=== PATIENT | male | born 1930 | race Caucasian/White ===

== ENCOUNTER 2017-03-15 12:55 | Inpatient (IN) | payer MEDICARE, OTHER ==
[~2017-03-15 12:55] MED LIST: Iopamidol 370 76% 100 ML VIAL ONE; Iopamidol 370 76% 50 ML VIAL FS ONE
[2017-03-15] MEDS ORDERED: Ondansetron HCl/PF 4 MG/2 ML Vial ONE (13:04)
[2017-03-15 13:14] LABS: #Eosinphils 0.2 thou/uL (0.0-0.7); #Lymphocytes 1.9 thou/uL (1.20-3.40); #Monocytes 0.7 thou/uL (0.11-0.59); %Basophils 0.3 % (0.0-1.0); %Eosinophils 2.4 % (0.0-10.0); %Lymphocytes 24.3 % (21.0-51.0); %Monocytes 9.4 % (0.0-10.0); %Neutrophils 63.5 % (42.0-75.0); Hemoglobin 14.9 g/dL (14.0-18.0); Mean Corpuscular HGB CONC 33.5 g/dL (32.0-36.0); Mean Corpuscular Hemoglobin 31.3 pg (27.0-31.0); Mean Corpuscular Volume 93.5 fl (80.0-94.0); Mean Platelet Volume 8.4 fL (7.4-10.4); Platelet Count 168 thou/uL (130-400); RBC Distribution Width 12.9 % (11.5-14.5); Red Blood Cell (RBC) Count 4.76 mill/uL (4.70-6.10); White Blood Cell (WBC) Count 7.9 thou/uL (4.8-10.8)
[2017-03-15 13:25] LABS: INR-International Normal Ratio 1.2; Prothrombin Time 15.2 SEC (12.0-14.7)
[2017-03-15 13:31] LABS: ALT (SGPT) 26 U/L (8-55); AST (SGOT) 32 U/L (5-34); Alkaline Phosphatase 106 U/L (40-150); Anion Gap 15 mmol/L (10-20); BUN (Urea Nitrogen) 13 mg/dL (8.4-25.7); Bilirubin, Total 0.9 mg/dL (0.2-1.2); CK (CPK) 71 U/L (30-200); Calc. Creatinine Clearance 0 mL/min (70-130); Calcium 8.9 mg/dL (7.8-10.44); Carbon Dioxide 22 mmol/L (23-31); Chloride 109 mmol/L (98-107); Estimated GFR-MDRD 81; Globulin 2.5 g/dL (2.4-3.5); Glucose 171 mg/dL (83-110); Lipase 188 U/L (8-78); Potassium 3.5 mmol/L (3.5-5.1); Protein, Total 6.5 g/dL (5.8-8.1); Sodium 142 mmol/L (136-145)
[2017-03-15 13:31] LABS: PTT 136.4 SEC (22.9-36.1)
[2017-03-15 13:34] LABS: CKMB 3.1 ng/mL (0-6.6); Troponin I 0.087 ng/mL (< 0.028)
--- NOTE | 2017-03-15 14:11 | RAD ---
CHEST 1 VIEW: Date: 03/15/17 HISTORY: Emergency exam. COMPARISON: Chest 1 view dated 03/30/11. FINDINGS: Defibrillator pad projects over the right upper hemithorax. Cardiac silhouette and mediastinal contou rs are similar. No focal air space consolidation, pneumothorax, or effusion. No acute osseous abnorma lity. IMPRESSION: No acute intrathoracic abnormality. POS: [facility]
[2017-03-15 15:12] VITALS: BMI 26.5
[2017-03-15] MEDS ORDERED: cloNIDine 0.1 MG TAB PO PRN (15:32)
[2017-03-15] MEDS ORDERED: Aggrastat 12.5 MG/250 ML 12.5 MG in Premix Bag 1 BAG IVPB SCH (15:32)
[2017-03-15] MEDS ORDERED: Zolpidem Tartrate 5 MG TAB PO PRN (15:32)
[2017-03-15] MEDS ORDERED: Nitroglycerin 50 MG/250 ML BOT 250 ML IVPB SCH (15:45)
[2017-03-15] MEDS ORDERED: TICAGRELOR 90 MG TABLET PO SCH (15:45)
[2017-03-15] MEDS ORDERED: HYDROcodone/Acetaminophen 10/325 mg Tablet PO PRN (15:55)
[2017-03-15] MEDS ORDERED: Morphine 4 MG/ML Carpuject SLOW IVP SCH (16:00)
[2017-03-15] MEDS: Nitroglycerin 2% Ointment 1 INCH/1 GM Packet TOP SCH (16:07)
--- NOTE | 2017-03-15 17:10 | RAD ---
CHEST 1 VIEW: Date: 03/15/17 HISTORY: Status post CPR. COMPARISON: 03/15/17. FINDINGS: Portable supine chest demonstrates magnification of the cardiac silhouette due to portable technique. Pulmonary vessels prominent, likely due to position and recent CPR. No consolidation or mass. No pne umothorax on this supine projection. No osseous abnormalities. IMPRESSION: Cardiomegaly and pulmonary vascular prominence as detailed above. POS: [facility]
--- NOTE | 2017-03-15 17:28 | HP ---
INDICATION FOR ADMISSION: This is an 86-year-old gentleman suffering an acute non-ST segment elevati on myocardial infarction, but with some slight ST elevation in I and aVL. HISTORY OF PRESENT ILLNESS: He is an 86-year-old gentleman, who starting experiencing some chest jamshid n around 12:00 today. EMS was called and when they arrived, he was given, I believe metoprolol, aspi rin and nitroglycerin. He then went into ventricular fibrillation and required cardioversion. He th en was transferred to our facility for further evaluation and treatment. On arrival here, a repeat E KG shows ST segment depressions in II, III and aVF with slight elevation in I and aVL, but the patien t says the pain is somewhat better now, but still continued to have some chest discomfort and it is u ncertain whether or not this is pain from the chest wall from the cardioversion and CPR, continued ch est pain. On palpation, he certainly is tender, but difficult to determine with the ST segment eleva tion and the acute ventricular fibrillation after chest pain. He was advised to undergo emergent car diac catheterization, was taken to the cardiac labor relations teacher for the procedure. I have explained the proc edure and the risks to him to include bleeding, infection, possibility of myocardial infarction, CVA, renal insufficiency, allergic contrast reaction and even the possibility of and will plan for emergent cardiac catheterization. PAST MEDICAL AND SURGICAL HISTORY: Significant for atrial fibrillation, hypertension, appendectomy, prostatectomy, hemorrhoidectomy, vasectomy, history of prostate cancer, osteoarthritis and urinary in continence. He has had cataract surgery and hernia repair. SOCIAL HISTORY: We will discuss this later, but it is uncertain about his alcohol or tobacco use. FAMILY HISTORY: Noncontributory at this time. ALLERGIES: None. REVIEW OF SYSTEMS: Twelve-point review of systems unremarkable except what was noted in the history of present illness with the chest pain and urinary incontinence. His medications included hydrochlor othiazide, Protonix and Toprol-XL 25 mg a day at home. PHYSICAL EXAMINATION: GENERAL: Reveals an elderly gentleman who is in no acute distress at this time, but appears to be so mewhat uncomfortable. VITAL SIGNS: Blood pressure is 130 systolically. In the cardiac labor relations teacher, the blood pressure is 167 /93. HEENT: Shows head to be normocephalic, atraumatic. Carotid pulses are present. There were no bruit s. CHEST: Actually, clear to auscultation without any rales, rhonchi or wheezing. CARDIOVASCULAR: Reveals regular rate and rhythm at this time. He has a soft diastolic murmur over t he aortic area, but otherwise no significant murmurs, heaves, thrills, bruits or rubs noted. ABDOMEN: Soft and nontender. EXTREMITIES: Showed no clubbing, cyanosis or edema. Pedal pulses are present. NEUROLOGIC: The patient appears to be fully intact. IMAGING DATA: EKG labor relations teacher shows again ST segment depression in II, III and aVF with T-wave inversio ns and biphasic T waves in lead II and AVF with slight elevation in I and aVL, otherwise there were n o acute changes. The patient does remain in sinus rhythm. LABORATORY DATA: Still pending. IMPRESSION AND PLAN: 1. Acute ST elevation in I and aVL compatible with lateral myocardial infarction. The patient will be taken emergently to the cardiac catheterization lab to undergo further evaluation and treatment. He understands the procedure. We will plan to proceed as noted. 2. Hypertension remains stable at this time. 3. History of prostate surgery and urinary incontinence after the prostatectomy.
[2017-03-15] MEDS ORDERED: Ondansetron HCl/PF 4 MG/2 ML Vial IVP PRN (19:07)
[2017-03-15] MEDS: Atorvastatin Calcium 40 MG TAB PO SCH (21:55)
[2017-03-15] MEDS: Carvedilol 6.25 MG TAB PO SCH (21:55)
[2017-03-15 23:34] LABS: Troponin I 6.619 ng/mL (< 0.028)
[2017-03-16] MEDS: Nitroglycerin 2% Ointment 1 INCH/1 GM Packet TOP SCH ×4 (01:11→23:18)
[2017-03-16 05:36] LABS: #Lymphocytes 0.8 thou/uL (1.20-3.40); #Monocytes 0.8 thou/uL (0.11-0.59); #Neutrophils 7.6 thou/uL (1.40-6.50); %Basophils 0.1 % (0.0-1.0); %Eosinophils 0.5 % (0.0-10.0); %Lymphocytes 8.5 % (21.0-51.0); %Monocytes 8.8 % (0.0-10.0); %Neutrophils 82.1 % (42.0-75.0); Hemoglobin 13.2 g/dL (14.0-18.0); Mean Corpuscular HGB CONC 33.1 g/dL (32.0-36.0); Mean Corpuscular Hemoglobin 31.1 pg (27.0-31.0); Mean Corpuscular Volume 93.9 fl (80.0-94.0); Mean Platelet Volume 8.5 fL (7.4-10.4); Platelet Count 168 thou/uL (130-400); RBC Distribution Width 12.9 % (11.5-14.5); Red Blood Cell (RBC) Count 4.25 mill/uL (4.70-6.10); White Blood Cell (WBC) Count 9.2 thou/uL (4.8-10.8)
[2017-03-16 05:55] LABS: ALT (SGPT) 21 U/L (8-55); AST (SGOT) 41 U/L (5-34); Albumin 3.7 g/dL (3.4-4.8); Alkaline Phosphatase 83 U/L (40-150); Anion Gap 11 mmol/L (10-20); BUN (Urea Nitrogen) 10 mg/dL (8.4-25.7); Bilirubin, Total 0.7 mg/dL (0.2-1.2); Calc. Creatinine Clearance 80 mL/min (70-130); Calcium 8.7 mg/dL (7.8-10.44); Carbon Dioxide 25 mmol/L (23-31); Chloride 108 mmol/L (98-107); Estimated GFR-MDRD 90; Globulin 2.1 g/dL (2.4-3.5); Glucose 152 mg/dL (83-110); Potassium 3.7 mmol/L (3.5-5.1); Protein, Total 5.8 g/dL (5.8-8.1); Sodium 140 mmol/L (136-145)
[2017-03-16 06:04] LABS: Troponin I 5.715 ng/mL (< 0.028)
--- NOTE | 2017-03-16 08:13 | RAD ---
PORTABLE CHEST 1 VIEW: DATE: 03/16/17. TIME: 5:05 a.m. HISTORY: CPR. FINDINGS: Comparison is made with the exam of previous day. The lung bases have been excluded from the film. The patient is rotated to the left. There are postop changes of right rotator cuff repair. The visu alized lung clifford demonstrate no lobar consolidation or pneumothoraces. POS: [facility]
[2017-03-16] MEDS ORDERED: Lisinopril 2.5 MG TAB PO SCH (09:00)
[2017-03-16] MEDS: Carvedilol 6.25 MG TAB PO SCH ×2 (09:58→20:48)
[2017-03-16] MEDS: TICAGRELOR 90 MG TABLET PO SCH ×2 (09:59→20:48)
[2017-03-16] MEDS: Lisinopril 2.5 MG TAB PO SCH ×2 (10:02→20:49)
--- NOTE | 2017-03-16 10:15 | CON ---
DATE OF CONSULTATION: 03/16/2017 SERVICE: Pulmonary Medicine. REASON FOR CONSULTATION: ICU patient. HISTORY OF PRESENT ILLNESS: The patient is a pleasant 86-year-old white male with past medical history significant for coronary artery disease and atrial fibrillation. He is in his usual state of health when he has had an abrupt onset of chest discomfort. EMS arrived at his house and gave him beta chaka, aspirin, and Nitro. He went into ventricular fibrillation and arrested. He required cardioversion. He was brought to the emergency department and a chest x-ray had abnormal EKG findings that could be possibly consistent with an ST elevation IL. He underwent emergent cardiac catheterization and an unobstructed LAD with mid LAD lesion was identified, and stented. The patient had resolution in his chest discomfort. Overnight, he did very well without any events. He denies any current fevers, chills, nausea, vomiting, or chest discomfort. He is in a chair and engaged with his family. Otherwise, there has been no interval changes to his condition. PAST MEDICAL HISTORY: 1. Hypertension. 2. Dyslipidemia. 3. Coronary artery disease. 4. History of IL, status post PCI to the mid LAD. 5. Atrial fibrillation. 6. History of prostate cancer. 7. Osteoarthritis. 8. Urinary incontinence. PAST SURGICAL HISTORY: 1. Appendectomy. 2. Prostatectomy. 3. Hemorrhoidectomy. 4. Vasectomy. 5. Cataract surgery. 6. Herniorrhaphy. SOCIAL HISTORY: He denies any illicit drug use. He has a history of smoking tobacco. He uses alcohol occasionally. He denies any exposure to chemicals, dust asbestos, or tuberculosis. FAMILY HISTORY: Noncontributory. ALLERGIES: No known drug allergies. MEDICATIONS: List of his inpatient medications were reviewed. No updates were made. REVIEW OF SYSTEMS: General, head, ears, eyes, nose, throat, cardiovascular, respiratory, abdomen, GI, , musculoskeletal, neurologic and skin is negative except as mentioned in the HPI. PHYSICAL EXAMINATION: VITAL SIGNS: Afebrile, pulse 59, blood pressure 129/54, respirations 14, saturation 94% on room air. GENERAL: Patient is awake, alert, in no apparent distress. LUNGS: Excellent air entry. There is no prolonged expiratory phase, wheeze, rhonchi or crackles. HEART: Normal rate, regular. ABDOMEN: Soft, nontender, nondistended, bowel sounds positive. MUSCULOSKELETAL: No cyanosis or clubbing. No pitting in the bilateral lower extremities. NEUROLOGIC: Grossly nonfocal. LABORATORY DATA: Hemoglobin 13.2, platelets 168,000. INR 1.2. Basic metabolic profile and liver function studies are unremarkable. Troponin is down trending to 5.7. BNP 120. IMAGING: Chest x-ray demonstrates cardiomegaly is present. There is no acute cardiopulmonary abnormality otherwise identified. This was subsequently repeated because the bases were cut off. In the repeat film, there was some pulmonary vascular congestion, but otherwise, no acute cardiopulmonary abnormality. ASSESSMENT: 1. ST elevation myocardial infarction. 2. History of atrial fibrillation. PLAN: The patient has demonstrated hemodynamic stability. He transitioned to the telemetry unit from the floor, will need to be monitored for an additional 24-48 hours based on Cardiology's preferences. He has no further requirements for inpatient Pulmonary Critical Care opinion. As such, when he goes to the floor, I will sign off. Please call with additional questions or concerns. 70 minutes have been devoted to this patient in various activities. I personally reviewed all imaging studies and laboratory data noted within this document. For at least half of this time, I was interacting with the patient at the bedside or coordinating care with the care team. For the remainder of the time I was immediately available to the patient in the hospital unit. TRACIE
[2017-03-16] MEDS: Atorvastatin Calcium 40 MG TAB PO SCH (20:48)
[2017-03-17] MEDS: TICAGRELOR 90 MG TABLET PO SCH ×2 (09:27→22:37)
[2017-03-17] MEDS: Carvedilol 6.25 MG TAB PO SCH ×2 (09:27→22:37)
[2017-03-17] MEDS: Nitroglycerin 2% Ointment 1 INCH/1 GM Packet TOP SCH (09:31)
[2017-03-17] MEDS: Hydrochlorothiazide 25 MG TAB PO SCH (09:37)
[2017-03-17] MEDS: Lisinopril 10 MG TAB PO SCH ×2 (09:37→22:36)
[2017-03-17] MEDS: Atorvastatin Calcium 40 MG TAB PO SCH (22:37)
[2017-03-18 06:04] LABS: Anion Gap 10 mmol/L (10-20); BUN (Urea Nitrogen) 11 mg/dL (8.4-25.7); Calc. Creatinine Clearance 84 mL/min (70-130); Calcium 8.9 mg/dL (7.8-10.44); Carbon Dioxide 25 mmol/L (23-31); Chloride 103 mmol/L (98-107); Estimated GFR-MDRD Greater than 90; Glucose 115 mg/dL (83-110); Potassium 3.8 mmol/L (3.5-5.1); Sodium 134 mmol/L (136-145)
[2017-03-18] MEDS: Hydrochlorothiazide 25 MG TAB PO SCH (08:23)
[2017-03-18] MEDS: TICAGRELOR 90 MG TABLET PO SCH (08:23)
[2017-03-18] MEDS: Lisinopril 10 MG TAB PO SCH (08:23)
[2017-03-18] MEDS: Carvedilol 6.25 MG TAB PO SCH ×2 (08:23→20:03)
[2017-03-18] MEDS ORDERED: Lisinopril 10 MG TAB PO SCH (09:02)
[2017-03-18] MEDS ORDERED: Amlodipine 5 MG TAB PO SCH (09:30)
[2017-03-18] MEDS: Lisinopril 20 MG TAB PO SCH ×2 (09:37→20:02)
[2017-03-18] MEDS: Amlodipine 5 MG TAB PO SCH (09:37)
[2017-03-18] MEDS ORDERED: Diabetic Tussin 200 MG/10 ML UDCUP PO PRN (17:51)
[2017-03-18] MEDS: Atorvastatin Calcium 40 MG TAB PO SCH (20:03)
[2017-03-19 05:56] LABS: Anion Gap 12 mmol/L (10-20); BUN (Urea Nitrogen) 14 mg/dL (8.4-25.7); Calc. Creatinine Clearance 77 mL/min (70-130); Calcium 9.1 mg/dL (7.8-10.44); Carbon Dioxide 25 mmol/L (23-31); Chloride 103 mmol/L (98-107); Estimated GFR-MDRD Greater than 90; Glucose 109 mg/dL (83-110); Potassium 4.1 mmol/L (3.5-5.1); Sodium 136 mmol/L (136-145)
[2017-03-19 07:34] VITALS: TEMP 99
[2017-03-19] MEDS: Carvedilol 6.25 MG TAB PO SCH (08:35)
[2017-03-19] MEDS: Lisinopril 20 MG TAB PO SCH (08:36)
[2017-03-19] MEDS: Amlodipine 5 MG TAB PO SCH (08:36)
[2017-03-19] MEDS ORDERED: Amlodipine 10 MG TAB PO SCH (09:00)
[2017-03-19] MEDS ORDERED: Clopidogrel Bisulfate 75 MG TAB PO SCH (09:00)
[2017-03-19 11:43] VITALS: BP 168/71
--- NOTE | 2017-03-19 13:52 | DIS ---
DATE OF ADMISSION: 03/15/2017 DATE OF DISCHARGE: 03/19/2017 DISCHARGE DIAGNOSES: 1. Status post myocardial infarction. 2. History of percutaneous transluminal coronary angioplasty and stent placement to the left anterior descending. 3. Hypertension. 4. Dyslipidemia. This is a pleasant 86-year-old gentleman presented with acute onset of substernal chest pain. The patient was noted to have acute ST elevation in the anterior leads. The patient was taken emergently to the cardiac catheterization laboratory. HOSPITAL COURSE: The patient underwent emergent PTCA and stent placement to the LAD. The patient was monitored in the ICU. He had one vasovagal episode during his hospitalization. The patient was treated with aspirin, Plavix, and lipid-lowering medication. He was also started on beta-chaka, BARBARA inhibitor therapy and Norvasc. At the time of discharge, the patient was in stable condition. DISCHARGE MEDICATIONS: Aspirin 81 mg daily, Lipitor 40 mg at bedtime, Plavix 75 mg daily, Norvasc 10 mg daily ,Lisinopril 20 mg po BID and Coreg 6.25 twice a day. MTDD
--- NOTE | 2017-03-22 16:38 | EKG ---
Test Reason : Blood Pressure : / mmHG Vent. Rate : 074 BPM Atrial Rate : 074 BPM P-R Int : 192 ms QRS Dur : 086 ms QT Int : 426 ms P-R-T Axes : 059 031 026 degrees QTc Int : 472 ms Normal sinus rhythm ST elevation consider lateral injury or acute infarct ACUTE GA / STEMI Abnormal ECG When compared with ECG of 19-FEB-2015 13:38, Non-specific change in ST segment in Anterior leads QT has lengthened Confirmed by Jim STEVENS ([id number]) on 03/22/2017 4:37:35 PM Referred By: RODNEY Confirmed By:Jim STEVENS
== END 2017-03-19 12:01 | disposition home or self-care (01) | DRG 248 ==
LOC: ERS 12:55 → CCU 14:35 → 2NO 03-16 22:37
PROVIDERS: ADMIT Internal Medicine Cardiovascular Disease; ATTEND Internal Medicine Cardiovascular Disease
PROC: 02703DZ Dilation of Coronary Artery, One Artery with Intraluminal Device, Percutaneous Approach (ICD-10-PCS; principal; 2017-03-15)
PROC: 4A023N7 Measurement of Cardiac Sampling and Pressure, Left Heart, Percutaneous Approach (ICD-10-PCS; 2017-03-15)
PROC: B2111ZZ Fluoroscopy of Multiple Coronary Arteries using Low Osmolar Contrast (ICD-10-PCS; 2017-03-15)
PROC: B2151ZZ Fluoroscopy of Left Heart using Low Osmolar Contrast (ICD-10-PCS; 2017-03-15)
DX: I21.29 ST elevation (STEMI) myocardial infarction involving other sites (principal); I49.01 Ventricular fibrillation; I48.91 Unspecified atrial fibrillation; I10 Essential (primary) hypertension; Z85.46 Personal history of malignant neoplasm of prostate; E78.5 Hyperlipidemia, unspecified; I25.10 Atherosclerotic heart disease of native coronary artery without angina pectoris; M19.90 Unspecified osteoarthritis, unspecified site; Z87.891 Personal history of nicotine dependence
CPT/HCPCS: 36415; 71045; 80048; 80053; 82550; 82553; 83690; 83880; 84484; 85025; 85347; 85610; 85730; 92928; 93005; 93010; 93458; 93798; 96374; A4216; C1725; C1769; C1876; C1887; J2270; J2405; J3246

== ENCOUNTER 2017-06-20 07:58 | Emergency (ER) | payer MEDICARE, OTHER ==
[2017-06-20 08:47] LABS: #Eosinphils 0.3 thou/uL (0.0-0.7); #Lymphocytes 0.5 thou/uL (1.20-3.40); #Monocytes 0.6 thou/uL (0.11-0.59); #Neutrophils 5.5 thou/uL (1.40-6.50); %Eosinophils 4.3 % (0.0-10.0); %Lymphocytes 7.5 % (21.0-51.0); %Monocytes 8.4 % (0.0-10.0); %Neutrophils 79.7 % (42.0-75.0); Hemoglobin 15.2 g/dL (14.0-18.0); Mean Corpuscular HGB CONC 33.5 g/dL (32.0-36.0); Mean Corpuscular Hemoglobin 31.2 pg (27.0-31.0); Mean Corpuscular Volume 93.2 fl (80.0-94.0); Mean Platelet Volume 7.9 fL (7.4-10.4); Platelet Count 166 thou/uL (130-400); Red Blood Cell (RBC) Count 4.85 mill/uL (4.70-6.10); White Blood Cell (WBC) Count 6.9 thou/uL (4.8-10.8)
[2017-06-20 08:58] LABS: ALT (SGPT) 15 U/L (8-55); AST (SGOT) 18 U/L (5-34); Albumin 4.1 g/dL (3.4-4.8); Alkaline Phosphatase 141 U/L (40-150); Anion Gap 13 mmol/L (10-20); BUN (Urea Nitrogen) 14 mg/dL (8.4-25.7); Bilirubin, Total 0.8 mg/dL (0.2-1.2); Calc. Creatinine Clearance 0 mL/min (70-130); Calcium 9.2 mg/dL (7.8-10.44); Carbon Dioxide 24 mmol/L (23-31); Chloride 106 mmol/L (98-107); Estimated GFR-MDRD Greater than 90; Globulin 2.8 g/dL (2.4-3.5); Glucose 115 mg/dL (83-110); Potassium 4.5 mmol/L (3.5-5.1); Protein, Total 6.9 g/dL (5.8-8.1); Sodium 138 mmol/L (136-145)
[2017-06-20 09:08] LABS: CKMB 1.7 ng/mL (0-6.6)
[2017-06-20 11:46] LABS: Troponin I 0.053 ng/mL (< 0.028)
--- NOTE | 2017-06-20 17:13 | RAD ---
UPRIGHT PORTABLE CHEST ONE VIEW: 06/20/17 HISTORY: 86-year-old male with history of left arm pain beginning this morning. COMPARISON: 03/16/17. FINDINGS: Monitor leads overlie the chest. Heart size is normal. Postop changes of the left shoulder. IMPRESSION: No acute intrathoracic disease. POS: [facility]
[2017-06-20] MEDS ORDERED: Nitroglycerin 0.4 MG TAB (25 Tab Bottle) SL PRN (23:58)
[2017-06-21] MEDS ORDERED: Aspirin 325 MG TAB PO SCH (09:00)
== END 2017-06-20 12:25 | disposition home or self-care (01) ==
LOC: ERS 07:58
DX: M79.602 Pain in left arm (principal); I10 Essential (primary) hypertension; R79.89 Other specified abnormal findings of blood chemistry; I25.2 Old myocardial infarction; Z79.82 Long term (current) use of aspirin; Z79.899 Other long term (current) drug therapy
CPT/HCPCS: 71045; 80053; 82553; 83880; 84484; 85025; 93005

== ENCOUNTER 2017-06-20 20:40 | Inpatient (IN) | payer MEDICARE, OTHER ==
[2017-06-20 21:41] LABS: #Eosinphils 0.4 thou/uL (0.0-0.7); #Lymphocytes 0.6 thou/uL (1.20-3.40); #Monocytes 0.6 thou/uL (0.11-0.59); #Neutrophils 4.8 thou/uL (1.40-6.50); %Basophils 0.1 % (0.0-1.0); %Eosinophils 5.7 % (0.0-10.0); %Neutrophils 75.2 % (42.0-75.0); Hemoglobin 14.9 g/dL (14.0-18.0); Mean Corpuscular HGB CONC 35.3 g/dL (32.0-36.0); Mean Corpuscular Hemoglobin 32.5 pg (27.0-31.0); Mean Corpuscular Volume 92.1 fl (80.0-94.0); Mean Platelet Volume 7.7 fL (7.4-10.4); Platelet Count 180 thou/uL (130-400); Red Blood Cell (RBC) Count 4.58 mill/uL (4.70-6.10); White Blood Cell (WBC) Count 6.4 thou/uL (4.8-10.8)
[2017-06-20 22:06] LABS: ALT (SGPT) 14 U/L (8-55); AST (SGOT) 23 U/L (5-34); Albumin 4.1 g/dL (3.4-4.8); Alkaline Phosphatase 149 U/L (40-150); Anion Gap 16 mmol/L (10-20); BUN (Urea Nitrogen) 18 mg/dL (8.4-25.7); Bilirubin, Total 0.6 mg/dL (0.2-1.2); CK (CPK) 37 U/L (30-200); Calc. Creatinine Clearance 0 mL/min (70-130); Calcium 9.3 mg/dL (7.8-10.44); Carbon Dioxide 21 mmol/L (23-31); Chloride 106 mmol/L (98-107); Estimated GFR-MDRD 86; Globulin 3.4 g/dL (2.4-3.5); Glucose 144 mg/dL (83-110); Potassium 4.2 mmol/L (3.5-5.1); Protein, Total 7.5 g/dL (5.8-8.1); Sodium 139 mmol/L (136-145)
[2017-06-20 22:08] LABS: CKMB 1.8 ng/mL (0-6.6); Troponin I 0.038 ng/mL (< 0.028)
[2017-06-21] MEDS ORDERED: Nitroglycerin 0.4 MG TAB (25 Tab Bottle) SL PRN (01:13)
[2017-06-21] MEDS ORDERED: Morphine 4 MG/ML VIAL SLOW IVP PRN (01:13)
[2017-06-21] MEDS ORDERED: Milk Of Magnesia 30 ML UDCUP PO PRN (01:14)
[2017-06-21] MEDS ORDERED: Acetaminophen 325 MG TAB PO PRN (01:14)
[2017-06-21 01:33] LABS: Troponin I 0.149 ng/mL (< 0.028)
[2017-06-21 01:44] VITALS: BMI 28.8
--- NOTE | 2017-06-21 01:44 | HP ---
PRIMARY CARE PHYSICIAN: EUNICE Pete PRESENTING COMPLAINT: Chest pain. HISTORY OF PRESENT ILLNESS: Mr. Raoul Khan is an 86-year-old male with a past medical history of hypertension, hyperlipidemia, CAD status post stents, and recent SD in 02/2017 who presented to the emergency room today with complaints of chest discomfort which he rates as a 2/10, left-sided, radiating down both arms. There are no aggravating or relieving factors. It was associated with nausea. He denies palpitations, PND, orthopnea, or lower extremity edema. He has no urinary symptoms. He has no diarrhea or constipation, abdominal pain, or vomiting. He came to the ER earlier this morning and he was found to have elevated troponin. He was told he needed to be admitted for observation, but left AMA. He, however, returned later this evening when his symptoms did not marium. PAST MEDICAL HISTORY: As stated in the HPI. PAST SURGICAL HISTORY: Prostatectomy, herniorrhaphy, rotator cuff surgery. FAMILY HISTORY: Reviewed and noncontributory. SOCIAL HISTORY: He denies drinking alcohol, smoking cigarettes or use of illicit drugs. ALLERGIES: No known drug allergies. HOME MEDICATIONS: Amlodipine 10 mg daily, atorvastatin 40 mg at bedtime, carvedilol 6.25 mg b.i.d., Plavix 75 mg daily, lisinopril 20 mg b.i.d., nitroglycerin 0.4 mg sublingual, and pantoprazole 40 mg daily. REVIEW OF SYSTEMS: A 10- point review of systems conducted and negative except as stated in HPI. PHYSICAL EXAMINATION: VITAL SIGNS: Within normal limits. HEENT: Normocephalic, atraumatic, not pale, anicteric. PERRLA, EOMI. Moist mucous membranes. NECK: Supple. No JVD. Full range of movement. CARDIOVASCULAR: S1 and S2 only. No murmurs, rubs or gallops. Regular rate and rhythm. RESPIRATORY: Chest nontender to palpation. Vesicular breath sounds bilaterally. No wheezes, rales or rhonchi. ABDOMEN: Soft, nontender, nondistended. No organomegaly. Bowel sounds normoactive. NEUROLOGIC: Alert and well oriented to time, place and person. No focal deficits. PSYCHIATRIC: Normal mood and affect. SKIN: Warm, dry, well perfused. No rashes or lesions. MUSCULOSKELETAL: No edema. LABORATORY DATA: CBC was largely unremarkable. Troponin of 0.053 at 11:00 a.m. but reduced to 0.038 around 9:20 p.m. Chest x-ray showed no acute signs of intrathoracic disease. EKG showed no ST segment elevation. ASSESSMENT AND PLAN: 1. Chest pain to rule out acute coronary syndrome: The patient presented with chest pain radiating down both arms associated with nausea. He had mildly elevated troponin on examination and he has been admitted to rule out acute coronary syndrome. He will be monitored on telemetry, placed on sublingual nitroglycerin and IV morphine p.r.n. for chest pain. Cardiology has been consulted. We will also trend his troponin and monitor vital signs closely. 2. Elevated Troponin: Likely demand ischemia. Started trending down so will hold off on Lovenox/Heparin. Troponin will be trended. 3. Hypertension: Fair control. We will resume home medications of amlodipine and carvedilol once confirmed. 4. Hyperlipidemia: We will continue atorvastatin. 5. Coronary artery disease status post stents: Patient has been admitted to rule out acute coronary syndrome. He had a recent myocardial infarction in 2017 and had stents placed by Dr. Reaves. We will consult Cardiology and continue his home regimen of atorvastatin, carvedilol, Plavix, and lisinopril. Deep venous thrombosis prophylaxis, Lovenox. CODE STATUS: FULL CODE. MTDD
[2017-06-21] MEDS ORDERED: hydrALAZINE 20 MG/ML VIAL SLOW IVP PRN (04:55)
[2017-06-21 04:56] LABS: #Eosinphils 0.3 thou/uL (0.0-0.7); #Lymphocytes 0.8 thou/uL (1.20-3.40); #Monocytes 0.6 thou/uL (0.11-0.59); %Basophils 0.1 % (0.0-1.0); %Eosinophils 5.7 % (0.0-10.0); %Lymphocytes 14.2 % (21.0-51.0); %Monocytes 10.7 % (0.0-10.0); %Neutrophils 69.3 % (42.0-75.0); Hemoglobin 14.1 g/dL (14.0-18.0); Mean Corpuscular HGB CONC 33.6 g/dL (32.0-36.0); Mean Corpuscular Hemoglobin 30.8 pg (27.0-31.0); Mean Corpuscular Volume 91.9 fl (80.0-94.0); Mean Platelet Volume 7.6 fL (7.4-10.4); Platelet Count 158 thou/uL (130-400); RBC Distribution Width 13.9 % (11.5-14.5); Red Blood Cell (RBC) Count 4.56 mill/uL (4.70-6.10); White Blood Cell (WBC) Count 5.8 thou/uL (4.8-10.8)
[2017-06-21 05:17] LABS: Anion Gap 9 mmol/L (10-20); BUN (Urea Nitrogen) 16 mg/dL (8.4-25.7); Calc. Creatinine Clearance 83 mL/min (70-130); Calcium 8.8 mg/dL (7.8-10.44); Carbon Dioxide 25 mmol/L (23-31); Chloride 108 mmol/L (98-107); Estimated GFR-MDRD Greater than 90; Glucose 109 mg/dL (83-110); Potassium 3.9 mmol/L (3.5-5.1); Sodium 138 mmol/L (136-145)
[2017-06-21 05:24] LABS: Troponin I 0.876 ng/mL (< 0.028)
[2017-06-21] MEDS ORDERED: Enoxaparin Sodium 40 MG/0.4 ML SYRINGE SC SCH ×2 (06:15→09:00)
[2017-06-21] MEDS ORDERED: Enoxaparin Sodium 80 MG/0.8 ML SYRINGE SC SCH (06:30)
[2017-06-21 09:14] LABS: Troponin I 2.585 ng/mL (< 0.028)
[2017-06-21] MEDS: Carvedilol 6.25 MG TAB PO SCH ×2 (09:18→21:09)
[2017-06-21] MEDS: Amlodipine 10 MG TAB PO SCH (09:18)
[2017-06-21] MEDS: Lisinopril 20 MG TAB PO SCH ×2 (09:19→21:09)
[2017-06-21] MEDS: Docusate 100 MG CAP PO SCH ×2 (09:20→21:10)
--- NOTE | 2017-06-21 13:27 | PDOC.EVN ---
Event Note - Event Note Event Note: Pt seen and examined . admitted last night with ecuurent chest pain Reported to nurse that he stopped his plavix for a dental preocedure recently. Has LAd stenting 02/2017 for STEMI. feels well. no more chest pain/SOB/.no Nausea/diaphoresis. NAD CTA b/l RRR Troponin uptrending . will await further cardiology recs. keep NPO for now Cont BID lovenox for NSTEMI . Change to inpatient for ACS. cont rest of the home meds as ordered and reviewed by myself.
[2017-06-21] MEDS: Penicillin V Potassium 250 MG TAB PO SCH ×2 (14:52→21:08)
--- NOTE | 2017-06-21 16:32 | CON ---
DATE OF CONSULTATION: 06/21/2017 REASON FOR CONSULTATION: Non-STEMI. PRIMARY INSTALLATION SUPERINTENDENT: Elia Capone M.D. HISTORY OF PRESENT ILLNESS: Mr. Silveira is a pleasant 86-year-old white gentleman, who comes to the [facility] for chest pain. He came in earlier yesterday and was having left-sided chest pain, rate of a bout 2/10 in intensity. He was advised to stay in the hospital as his troponins were in the indeterm inate range and they wanted to see if it was going up, so he was advised to be admitted. He left [facility] medical advice; however, he returned later in that evening as the symptoms did not get any frank r. He was found to have a troponin that was still going up, so he was admitted for this. Cardiology is being consulted as his troponins have not been positive. Mr. Silveira currently is not complaining of any chest pain. He tells me that he is not having anything remotely similar to what he had back when he had his UT in February, where he had a bare metal stent placed to his LAD. His symptoms at th at time was of chest tightness in the midsternal area, at this time he just feels left arm pain. He states that the pain is much better now, but if he starts moving around he gets it again. He had den ifeanyi work about a week ago, so he stopped his Plavix 2 weeks ago. However, he did have a bare metal s tent placed in February, so he was only required to take Plavix up until March of this year. PAST MEDICAL HISTORY: 1. Hypertension. 2. Hyperlipidemia. 3. Coronary artery disease, status post PCI to the LAD in 02/2017 in the setting of an anterior UT. PAST SURGICAL HISTORY: 1. Prostatectomy. 2. Herniorrhaphy. 3. Rotator cuff surgery. 4. Stent placement as above. FAMILY HISTORY: Noncontributory. SOCIAL HISTORY: No alcohol, tobacco or drugs. OUTPATIENT MEDICATIONS: 1. Amlodipine 10 mg daily. 2. Atorvastatin 40 mg at bedtime. 3. Carvedilol 6.25 mg b.i.d. 4. Plavix 75 mg daily. 5. Lisinopril 20 mg b.i.d. 6. Nitroglycerin sublingual p.r.n. 7. Pantoprazole 40 mg daily. ALLERGIES: No known drug allergies. REVIEW OF SYSTEMS: Twelve-point review of systems was done and is all negative unless stated in the history of present illness. PHYSICAL EXAMINATION: VITAL SIGNS: Temperature 97.6, pulse 63, respiratory rate 18, satting 96% on room air, blood pressur e 163/71. GENERAL: Awake, alert, oriented x3, in no distress. HEENT: Normocephalic, atraumatic. NECK: Supple. LUNGS: Clear. CARDIOVASCULAR: S1, S2, no S3, S4, no murmurs, no rubs. ABDOMEN: Soft, positive bowel sounds. EXTREMITIES: No edema. SKIN: Warm and dry. LABORATORY WORK: Reviewed. CBC was unremarkable. Chemistry was unremarkable. GFR of greater than 90 with a creatinine of 0.76. Normal sodium and potassium. Troponin went from 0.03 to 0.14 to 0.8 t o 2.58. CK-MB was 1.8, albumin of 4.1. EKG was reviewed, no ischemic changes. Chest x-ray was reviewed, no acute intrathoracic disease. ASSESSMENT: 1. Non-ST elevation myocardial infarction. 2. History of coronary artery disease, status post stent to the left anterior descending, bare metal stent in February of this year. He had no significant residual disease, most likely this is his non- ST elevation myocardial infarction today is related to some level of in-stent restenosis. 3. Hypertension. PLAN: We will further risk stratify with a heart catheterization. I spoke with him at length of the risks and benefits of the procedure, risks including, but not limited to stroke, UT, , bleeding , need for blood transfusion, limb loss, organ loss, renal insufficiency from contrast, allergic reac tions from contrast, he understands and verbalized understanding of this. He agrees to proceed. Further recommendations per results of coronary angiogram.
[2017-06-21] MEDS: Enoxaparin Sodium 80 MG/0.8 ML SYRINGE SC SCH (21:08)
[2017-06-21] MEDS: Atorvastatin Calcium 40 MG TAB PO SCH (21:09)
[2017-06-22] MEDS: Penicillin V Potassium 250 MG TAB PO SCH ×3 (05:53→22:08)
[2017-06-22] MEDS: Carvedilol 6.25 MG TAB PO SCH ×2 (05:54→21:23)
[2017-06-22] MEDS: Amlodipine 10 MG TAB PO SCH (05:54)
[2017-06-22] MEDS: Lisinopril 20 MG TAB PO SCH ×2 (05:55→21:22)
[2017-06-22] MEDS ORDERED: Iopamidol 370 76% 100 ML VIAL ONE (06:48)
[2017-06-22] MEDS ORDERED: Lidocaine 1% (PF) 30 ML VIAL ONE (07:08)
[2017-06-22] MEDS: Docusate 100 MG CAP PO SCH ×3 (07:54→21:25)
[2017-06-22] MEDS: Enoxaparin Sodium 80 MG/0.8 ML SYRINGE SC SCH (07:54)
[2017-06-22] MEDS ORDERED: Clopidogrel Bisulfate 300 MG TAB PO SCH (09:00)
--- NOTE | 2017-06-22 16:00 | PDOC.PN ---
- Subjective Encounter Start Date: 06/22/17 Encounter Start Time: 15:59 Subjective: s/p cardiac cath this am.feels good and eager to go home.family at bedside -: nursing reports oozing from cath site w low Bp earlier which improved w NS -: denies any CP/SOB - Objective MAR Reviewed: Yes Vital Signs & Weight: Vital Signs (12 hours) Temp Pulse Resp BP BP BP BP 06/22/17 12:12 98.7 F 66 18 106/57 L 06/22/17 07:38 98.4 F 69 14 119/61 06/22/17 05:55 123/58 L 06/22/17 05:54 63 123/58 L 06/22/17 04:00 98.1 F 63 16 123/58 L Pulse Ox 06/22/17 12:12 94 L 06/22/17 07:38 94 L 06/22/17 05:55 06/22/17 05:54 06/22/17 04:00 95 Weight Weight 174 lb 13.225 oz I&O: 06/21/17 06/22/17 06/23/17 06:59 06:59 06:59 Intake Total 600 Balance 600 Result Diagrams: 06/21/17 04:25 06/21/17 04:25 Additional Labs: labs reviewed Phys Exam - Physical Examination Constitutional: NAD HEENT: PERRLA, moist MMs, sclera anicteric, oral pharynx no lesions Neck: no nodes, no JVD, supple, full ROM Respiratory: no wheezing, no rales, no rhonchi, clear to auscultation bilateral Cardiovascular: RRR, no significant murmur, no rub bleeding from Cath site R femoral Gastrointestinal: soft, non-tender, no distention, positive bowel sounds Musculoskeletal: no edema, pulses present Neurological: non-focal, normal sensation, moves all 4 limbs Psychiatric: normal affect, A&O x 3 Skin: no rash Dx/Plan (1) Chest pain Code(s): R07.9 - CHEST PAIN, UNSPECIFIED Status: Acute (2) NSTEMI (non-ST elevated myocardial infarction) Code(s): I21.4 - NON-ST ELEVATION (NSTEMI) MYOCARDIAL INFARCTION Status: Acute (3) CAD (coronary artery disease) Code(s): I25.10 - ATHSCL HEART DISEASE OF [place] CORONARY ARTERY W/O ANG PCTRS Status: Chronic (4) HTN (hypertension) Code(s): I10 - ESSENTIAL (PRIMARY) HYPERTENSION Status: Chronic (5) HLD (hyperlipidemia) Code(s): E78.5 - HYPERLIPIDEMIA, UNSPECIFIED Status: Chronic - Plan plan discussed w/ family, DVT proph w/SCDs cont medical management. S/P cardiac cath without new lesions.stenet parent -: resume ASA. Imdur added for angina -: cardiology following -: Cont to hold pressure at cath site.DC lovenox,hold plavix for now -: NS to keep BP mainaitaned.hold antihypertensives for now * .check labs in am Review of Systems - Review of Systems Constitutional: negative: fever, chills, sweats, weakness, malaise, other Eyes: negative: Pain, Vision Change, Conjunctivae Inflammation, Eyelid Inflammation, Redness, Other Respiratory: negative: Cough, Dry, Shortness of Breath, Hemoptysis, SOB with Excertion, Pleuritic Pain, Sputum, Wheezing Cardiovascular: negative: chest pain, palpitations, orthopnea, paroxysmal nocturnal dyspnea, edema, light headedness, other Gastrointestinal: negative: Nausea, Vomiting, Abdominal Pain, Diarrhea, Constipation, Melena, Hematochezia, Other Genitourinary: negative: Dysuria, Frequency, Incontinence, Hematuria, Retention , Other Musculoskeletal: negative: Neck Pain, Shoulder Pain, Arm Pain, Back Pain, Hand Pain, Leg Pain, Foot Pain, Other Skin: negative: Rash, Lesions, Merlin, Bruising, Other Neurological: negative: Weakness, Numbness, Incoordination, Change in Speech, Confusion, Seizures, Other - Medications/Allergies Allergies/Adverse Reactions: Allergies Allergy/AdvReac Type Severity Reaction Status Date / Time No Known Allergies Allergy Verified 03/15/17 13:08 Medications: Current Medications Acetaminophen (Tylenol) 650 mg PO Q4H PRN PRN Reason: Headache/Fever or Pain Last Admin: 06/21/17 07:01 Dose: 650 mg Amlodipine Besylate (Norvasc) 10 mg PO DAILY [facility] Last Admin: 06/22/17 05:54 Dose: 10 mg Aspirin (Aspirin Chewable) 81 mg PO DAILY [facility] Atorvastatin Calcium (Lipitor) 40 mg PO HS [facility] Last Admin: 06/21/17 21:09 Dose: 40 mg Carvedilol (Coreg) 6.25 mg PO BID [facility] Last Admin: 06/22/17 05:54 Dose: 6.25 mg Docusate Sodium (Colace) 100 mg PO BID [facility] Last Admin: 06/22/17 07:54 Dose: Not Given Hydralazine HCl (Apresoline) 10 mg SLOW IVP Q4H PRN PRN Reason: SBP Greater Than 180 Isosorbide Mononitrate (Imdur) 60 mg PO DAILY [facility] Last Admin: 06/22/17 09:52 Dose: 60 mg Lactulose (Lactulose) 20 gm PO DAILYPRN PRN PRN Reason: Constipation Lisinopril (Zestril) 20 mg PO BID [facility] Last Admin: 06/22/17 05:55 Dose: 20 mg Magnesium Hydroxide (Milk Of Magnesium) 30 ml PO DAILYPRN PRN PRN Reason: Constipation Morphine Sulfate (Morphine) 2 mg SLOW IVP Q5MIN PRN PRN Reason: Chest Pain Nitroglycerin (Nitrostat) 0.4 mg SL Q5MIN PRN PRN Reason: Chest Pain Pantoprazole Sodium (Protonix) 40 mg PO DAILY [facility] Last Admin: 06/22/17 05:56 Dose: 40 mg Penicillin V Potassium (Penicillin V Potassium) 500 mg PO Q8HR [facility] Last Admin: 06/22/17 14:14 Dose: 500 mg Sodium Chloride (Flush - Normal Saline) 10 ml IVF Q12HR [facility] Last Admin: 06/22/17 05:58 Dose: 10 ml Sodium Chloride (Flush - Normal Saline) 10 ml IVF PRN PRN PRN Reason: Saline Flush
[2017-06-22] MEDS: Sodium Chloride 0.9% 1,000 ML IV SCH (17:29)
[2017-06-22] MEDS: Atorvastatin Calcium 40 MG TAB PO SCH (21:23)
[2017-06-23 05:36] LABS: Hemoglobin 12.5 g/dL (14.0-18.0); Platelet Count 149 thou/uL (130-400)
[2017-06-23 05:40] LABS: Hemoglobin 12.3 g/dL (14.0-18.0)
[2017-06-23 05:44] LABS: Anion Gap 9 mmol/L (10-20); BUN (Urea Nitrogen) 12 mg/dL (8.4-25.7); Calc. Creatinine Clearance 77 mL/min (70-130); Calcium 8.4 mg/dL (7.8-10.44); Carbon Dioxide 25 mmol/L (23-31); Chloride 106 mmol/L (98-107); Estimated GFR-MDRD Greater than 90; Glucose 98 mg/dL (83-110); Potassium 4.1 mmol/L (3.5-5.1); Sodium 136 mmol/L (136-145)
[2017-06-23] MEDS: Penicillin V Potassium 250 MG TAB PO SCH (06:01)
[2017-06-23] MEDS: Sodium Chloride 0.9% 1,000 ML IV SCH (07:57)
[2017-06-23] MEDS: Amlodipine 10 MG TAB PO SCH (08:58)
[2017-06-23] MEDS: Carvedilol 6.25 MG TAB PO SCH (08:58)
[2017-06-23] MEDS: Docusate 100 MG CAP PO SCH (08:59)
[2017-06-23] MEDS ORDERED: Clopidogrel Bisulfate 75 MG TAB PO SCH (09:00)
[2017-06-23 11:57] VITALS: BP 105/54; TEMP 97.5
--- NOTE | 2017-06-23 17:27 | DIS ---
DATE OF ADMISSION: 06/21/2017 DATE OF DISCHARGE: 06/23/2017 CONDITION AT THE TIME OF DISCHARGE: Stable and improved. DISCHARGE DISPOSITION: Home. PRIMARY CARE PHYSICIAN: Gauri Guy. PRIMARY PUBLIC HEALTH DENTIST: Dr. Elia Capone. DISCHARGE DIAGNOSES: 1. Chest pain, likely non-ST elevation myocardial infarction. 2. History of coronary artery disease, status post left anterior descending stenting. 3. Hypertension. 4. Dyslipidemia. CONSULTATIONS INHOUSE: Cardiology, Dr. Zapata and Dr. Capnoe. PROCEDURES DONE IN THE HOSPITAL: Includes cardiac catheterization which shows mid LAD, 100% stenosis at 7 mm length and patent stent in proximal LAD. DISCHARGE MEDICATIONS: Are as follows; aspirin 81 mg daily, Plavix 75 mg daily. New medicine Imdur 60 mg daily, dose changed; lisinopril 20 mg at bedtime from b.i.d. and continue following nitroglycer in sublingual as needed; Penicillin V 500 q.8 hours as prescribed by primary care physician for few m ore days; Norvasc 10 mg daily; Lipitor 40 mg daily; Coreg 6.25 mg p.o. b.i.d. HISTORY OF PRESENTING ILLNESS: Mr. Silveira is a very pleasant 86-year-old male with known history of coronary artery disease, status post left anterior descending stenting with bare metal stent in [facility] of this year who is a patient of Dr. Capone, came to the emergency room on 06/21/2017 morning fo r complaints of chest pain. He was found to have elevated cardiac enzyme in the emergency room and E R physician wanted him to get admitted and evaluated, but he left AMA. Same day admission in the [facility], he continued to have pain in the chest and returned to the emergency room. Now, he was found t o have further elevation in his troponins. Initially, his cardiac enzymes were found to be 0.030 and when he returned, they have been up to 0.149. He was started on Lovenox b.i.d. and was admitted for further evaluation. Please see admission history and physical for further details. HOSPITAL COURSE: The patient was continued on subcutaneous b.i.d. dosing of Lovenox and was evaluate d by Cardiology. Dr. Zapata recommended that he underwent a cardiac catheterization. This was done by his own production finisher, Dr. Capone. He was found to have the patent stent, but lesion beyond the stent. Because of this, he was started on aspirin, Plavix, and Imdur and was given prescriptions on the same. His lisinopril dose was decreased to accommodate for the drop in the blood pressure from t he isosorbide. On the day of discharge, he is awake, alert, oriented and is eager to go home and is cleared by Cardi ology. He is hemodynamically stable and symptom free. All the prescriptions were provided and disch arge plan was discussed with the patient and his and they verbalized understanding. He is given the option of the cardiac rehab, but he is somewhat reluctant at this time. He was seen and examined prior to discharge. PHYSICAL EXAMINATION: VITAL SIGNS: This morning, temperature 97.5, pulse of 74, respirations 16, saturating 96% on room ai r, blood pressure 105/54. GENERAL: No acute distress, awake, alert, oriented x3. CHEST: Clear to auscultation without any wheezing, rales or rhonchi. Rate and rhythm is regular wit hout any murmur, rubs or gallops. NEUROLOGIC: Nonfocal. LABORATORY DATA: Peak troponin at 2.585. Serum chemistries unremarkable. Hemoglobin 12.3 on the da y of discharge. DISCHARGE INSTRUCTIONS: He is instructed to follow up with Cardiology as well as his primary care ph ysician in 7-10 days and he verbalized understanding. Total time spent in the discharge of this patient 32 minutes.
[2017-06-23] MEDS ORDERED: Lisinopril 20 MG TAB PO SCH (21:00)
== END 2017-06-23 12:46 | disposition home or self-care (01) | DRG 282 ==
LOC: ERS 20:40 → 2SW 06-21 00:33 → OBSVTOIN 06-21 09:20 → 2NO 06-21 12:16
PROVIDERS: ADMIT Internal Medicine; ATTEND Internal Medicine
PROC: 4A023N7 Measurement of Cardiac Sampling and Pressure, Left Heart, Percutaneous Approach (ICD-10-PCS; principal; 2017-06-22)
PROC: B2111ZZ Fluoroscopy of Multiple Coronary Arteries using Low Osmolar Contrast (ICD-10-PCS; 2017-06-22)
PROC: B2151ZZ Fluoroscopy of Left Heart using Low Osmolar Contrast (ICD-10-PCS; 2017-06-22)
DX: I21.4 Non-ST elevation (NSTEMI) myocardial infarction (principal); I10 Essential (primary) hypertension; E78.5 Hyperlipidemia, unspecified; I25.10 Atherosclerotic heart disease of native coronary artery without angina pectoris; Z95.5 Presence of coronary angioplasty implant and graft; I25.2 Old myocardial infarction; Z90.79 Acquired absence of other genital organ(s)
CPT/HCPCS: 36415; 71045; 80048; 80053; 82553; 83880; 84484; 85014; 85018; 85025; 85049; 93005; 93458; A4216; C1769; J1644; J1650; J2001

== ENCOUNTER 2017-10-28 10:09 | Outpatient (CLI) | payer OTHER, MEDICARE ==
--- NOTE | 2017-10-28 11:25 | RAD ---
KUB: HISTORY: Renal stone. FINDINGS: A large amount of fecal material is present in the colon. The bowel gas pattern is unremarkable. No definite urinary tract calculi are seen. However, in the presence of a large amount of stool, urina ry tract calculi may be obscured. There are degenerative changes in the spine. Postop changes are noted in the pelvis. POS: [facility]
== END 2017-10-28 10:10 | disposition home or self-care (01) ==
LOC: RAD 10:09
PROVIDERS: ATTEND Urology
DX: N20.0 Calculus of kidney (principal)
CPT/HCPCS: 74018; 81001

== ENCOUNTER 2017-11-17 11:34 | Emergency (ER) | payer MEDICARE, OTHER ==
[~2017-11-17 11:34] MED LIST changes: +ISOVUE-370 76%-LOCM 1 ML ONE; -Iopamidol 370 76% 100 ML VIAL ONE; -Iopamidol 370 76% 50 ML VIAL FS ONE
[2017-11-17] MEDS ORDERED: Ondansetron HCl/PF 4 MG/2 ML Vial ONE (11:54)
[2017-11-17 12:10] LABS: #Eosinphils 0.2 thou/uL (0.0-0.7); #Lymphocytes 1.1 thou/uL (1.20-3.40); #Monocytes 0.6 thou/uL (0.11-0.59); #Neutrophils 3.1 thou/uL (1.40-6.50); %Basophils 0.8 % (0.0-1.0); %Eosinophils 3.4 % (0.0-10.0); %Lymphocytes 21.9 % (21.0-51.0); %Monocytes 11.2 % (0.0-10.0); %Neutrophils 62.7 % (42.0-75.0); Hemoglobin 14.2 g/dL (14.0-18.0); Mean Corpuscular Volume 91.3 fL (78.0-98.0); Mean Platelet Volume 8.3 fL (7.4-10.4); Platelet Count 150 thou/uL (130-400); RBC Distribution Width 12.5 % (11.5-14.5); Red Blood Cell (RBC) Count 4.58 mill/uL (4.70-6.10)
[2017-11-17 12:24] LABS: ALT (SGPT) 13 U/L (8-55); AST (SGOT) 18 U/L (5-34); Albumin 4.2 g/dL (3.4-4.8); Alkaline Phosphatase 114 U/L (40-150); Anion Gap 13 mmol/L (10-20); BUN (Urea Nitrogen) 15 mg/dL (8.4-25.7); Bilirubin, Total 0.8 mg/dL (0.2-1.2); CK (CPK) 68 U/L (30-200); Calc. Creatinine Clearance 0 mL/min (70-130); Calcium 9.2 mg/dL (7.8-10.44); Carbon Dioxide 22 mmol/L (23-31); Chloride 105 mmol/L (98-107); Estimated GFR-MDRD 77; Globulin 2.6 g/dL (2.4-3.5); Glucose 96 mg/dL (83-110); Lipase 12 U/L (8-78); Potassium 4.7 mmol/L (3.5-5.1); Protein, Total 6.8 g/dL (5.8-8.1); Sodium 135 mmol/L (136-145)
[2017-11-17 12:29] LABS: CKMB 1.8 ng/mL (0-6.6); Troponin I Less than 0.010 ng/mL (< 0.028)
--- NOTE | 2017-11-17 14:04 | RAD ---
CHEST TWO VIEWS: History: Emesis and nausea. Comparison: 06-20-17 FINDINGS: Normal cardiac silhouette. The pulmonary vessels and hilum are normal. No masses or consolidation. No pneumothorax. Mild bony demineralization is noted. IMPRESSION: No acute cardiopulmonary process. POS: [facility]
[2017-11-17] MEDS ORDERED: Meclizine HCl 25 MG TAB ONE (14:38)
--- NOTE | 2017-11-17 14:38 | CT ---
CT HEAD NONCONTRAST: 11/17/17 HISTORY: Blurred vision. Altered mental status. FINDINGS: There is no evidence of acute intracranial hemorrhage or infarct. The ventricles appear normal in siz e, shape and position. There is no mass effect or shift of midline structures. Dystrophic calcification is noted along the posterior aspect of the right globe. Visualized paranasal sinuses are well aerated. IMPRESSION: No acute intracranial abnormalties are demonstrated. POS: [facility]
--- NOTE | 2017-11-17 14:48 | CT ---
CT ARTERIOGRAM HEAD WITH IV CONTRAST AND 3D MIP IMAGING: CT HEAD WITH IV CONTRAST 11/17/17 HISTORY: Altered mental status. Dizziness. Blurred vision. FINDINGS: No abnormal areas of brain enhancement are apparent. Good flow is present throughout the internal car otid system and vertebrobasilar system. Calcification within the carotid arteries at the brain base. No focal aneurysm or thrombosis. [place] is intact. IMPRESSION: Atherosclerosis. No acute vascular abnormalities are demonstrated. POS: [facility]
--- NOTE | 2017-11-21 13:36 | EKG ---
Test Reason : DIZZINESS Blood Pressure : / mmHG Vent. Rate : 057 BPM Atrial Rate : 057 BPM P-R Int : 178 ms QRS Dur : 088 ms QT Int : 456 ms P-R-T Axes : 031 014 046 degrees QTc Int : 443 ms Sinus bradycardia Otherwise normal ECG Confirmed by LILY RUCKER, DAVI Vargas ([id number]), newspaper copy editor EVERT ORNELAS ([id number]) on 11/21/2017 1:35:36 PM Referred By: Confirmed By:DAVI BAUTISTA MD
== END 2017-11-17 17:12 | disposition home or self-care (01) ==
LOC: ERS 11:34
DX: E86.0 Dehydration (principal); R42 Dizziness and giddiness; I25.10 Atherosclerotic heart disease of native coronary artery without angina pectoris; I25.2 Old myocardial infarction; I10 Essential (primary) hypertension; Z79.899 Other long term (current) drug therapy; Z79.82 Long term (current) use of aspirin
CPT/HCPCS: 36415; 70450; 70496; 71045; 80053; 82553; 83690; 83880; 84484; 85025; 93005; 96361; 96374; J2405

== ENCOUNTER 2018-01-04 10:38 | Observation (INO) | payer MEDICARE, OTHER ==
[2018-01-04 11:15] LABS: #Eosinphils 0.2 thou/uL (0.0-0.7); #Monocytes 0.9 thou/uL (0.11-0.59); #Neutrophils 8.1 thou/uL (1.40-6.50); %Basophils 0.1 % (0.0-1.0); %Lymphocytes 9.4 % (21.0-51.0); %Monocytes 9.1 % (0.0-10.0); %Neutrophils 79.4 % (42.0-75.0); Hemoglobin 13.7 g/dL (14.0-18.0); Mean Corpuscular HGB CONC 32.1 g/dL (32.0-36.0); Mean Corpuscular Hemoglobin 30.4 pg (27.0-31.0); Mean Corpuscular Volume 94.9 fL (78.0-98.0); Mean Platelet Volume 8.4 fL (7.4-10.4); Platelet Count 142 thou/uL (130-400); RBC Distribution Width 13.3 % (11.5-14.5); Red Blood Cell (RBC) Count 4.51 mill/uL (4.70-6.10); White Blood Cell (WBC) Count 10.2 thou/uL (4.8-10.8)
[2018-01-04 11:39] LABS: ALT (SGPT) 12 U/L (8-55); AST (SGOT) 15 U/L (5-34); Albumin 3.7 g/dL (3.4-4.8); Alkaline Phosphatase 119 U/L (40-150); Anion Gap 10 mmol/L (10-20); BUN (Urea Nitrogen) 12 mg/dL (8.4-25.7); Bilirubin, Total 1.4 mg/dL (0.2-1.2); CKMB 1.3 ng/mL (0-6.6); Calc. Creatinine Clearance 0 mL/min (70-130); Calcium 8.5 mg/dL (7.8-10.44); Carbon Dioxide 23 mmol/L (23-31); Chloride 107 mmol/L (98-107); Estimated GFR-MDRD 88; Globulin 2.4 g/dL (2.4-3.5); Glucose 113 mg/dL (83-110); Potassium 4.1 mmol/L (3.5-5.1); Protein, Total 6.1 g/dL (5.8-8.1); Sodium 136 mmol/L (136-145); Troponin I Less than 0.010 ng/mL (< 0.028)
--- NOTE | 2018-01-04 13:42 | RAD ---
FRONTAL VIEW CHEST: INDICATION: Syncope. COMPARISON: Reference is made to 11/17/2017. FINDINGS: There is no consolidation, effusion, or pneumothorax. The cardiac silhouette is accentuated by simone ble technique. No significant detrimental change is identified. IMPRESSION: 1. No focal consolidation. 2. Mild pulmonary hyperinflation which may be related to chronic obstructive pulmonary disease. Cor relate clinically. POS: [facility]
--- NOTE | 2018-01-04 14:04 | CT ---
CT HEAD NONCONTRAST: INDICATIONS: Syncope. COMPARISON: 11/17/2017 FINDINGS: No evidence of acute intracranial hemorrhage, mass effect, or midline shift. There is mild prominenc e of the ventricular system, related to parenchymal volume loss, which is likely due to the patient's age. There is no acute fluid level of the imaged paranasal sinuses. Mild chronic ischemic disease is present, involving the cerebral white matter. IMPRESSION: 1. No acute intracranial hemorrhage or mass effect. 2. Mild chronic microvascular ischemic disease. POS: [facility]
[2018-01-04 14:53] LABS: Troponin I Less than 0.010 ng/mL (< 0.028)
[2018-01-04 15:16] VITALS: BMI 25.7
[2018-01-04] MEDS ORDERED: Ondansetron ODT 4 MG TAB PO PRN (17:40)
[2018-01-04] MEDS ORDERED: Ondansetron PF 4 MG/2 ML Vial IVP PRN (17:40)
[2018-01-04] MEDS ORDERED: Acetaminophen 500 MG TAB PO PRN (17:40)
[2018-01-04] MEDS ORDERED: hydrALAZINE 20 MG/ML VIAL SLOW IVP PRN (17:40)
[2018-01-04] MEDS ORDERED: Nitroglycerin 0.4 MG TAB (25 Tab Bottle) SL SCH (17:45)
[2018-01-04 18:08] LABS: Troponin I Less than 0.010 ng/mL (< 0.028)
[2018-01-04] MEDS: Carvedilol 6.25 MG TAB PO SCH (20:17)
[2018-01-04] MEDS: Famotidine 20 MG TAB PO SCH (20:17)
[2018-01-04] MEDS ORDERED: Atorvastatin Calcium 40 MG TAB PO SCH (21:00)
--- NOTE | 2018-01-04 23:22 | HP ---
DATE OF ADMISSION: 01/04/2018 PRIMARY CARE PHYSICIAN: EUNICE Pete PRIMARY PENCILS WASHER: Dr. Elia Capone. CHIEF COMPLAINT: Passing out. HISTORY OF PRESENT ILLNESS: This is an 87-year-old male who presents to [facility] Emergency Department after apparently sustaining a syncopal event while seated at his home. Patien t states that he was shelling pecans in his recliner when he suddenly passed out. Patient was out fo r only few seconds, but when he came to, he states he was sweating and had some nausea. Patient stat es he had dry heaves but no emesis and was drenched in sweat. EMS personnel arrived assessing him an d transporting him to the Emergency Department for further evaluation. Patient denied any recent tra mark, injury, fall, change to bowel habits, recent fever or bowel and bladder incontinence. Patient s tates he did have a head cold over the last 24 to 48 hours taking [id number] [facility] the incident occurred as well as on the morning of admission. Patient states it was an ov [id number] remedy for cold symptoms that was apparently safe for patients with hypertension. Pat ient denied any other change to his chronic medication regimen. Patient denied any specific shortnes s of breath, chest pain, jaw, or left arm discomfort. Patient states he remains very active on his f arm, but not as active as he would like to be. Patient denies any recent fall or injuries. In the e mergency room, patient underwent general evaluation including screening metabolic survey, which was n egative. Patient underwent CT imaging of the brain, which showed no acute process. Patient was note d with bradycardia on electrocardiogram evaluation and was referred to the observation unit for furth er evaluation. PAST MEDICAL HISTORY: 1. Coronary artery disease, status post cardiac stent placement. 2. Hypertension. 3. History of non-ST elevation myocardial infarction. 4. Prostate carcinoma, status post radiation therapy,. 5. Gastroesophageal reflux disease. 6. History of cataracts. PAST SURGICAL HISTORY: 1. Status post hernia repair. 2. Status post prostatectomy. 3. Status post cataract removal. 4. Status post cardiac catheterization with stent placement. CURRENT MEDICATIONS: 1. Amlodipine 5 mg p.o. daily. 2. Protonix 40 mg p.o. daily. 3. Ranexa 1000 mg p.o. daily. 4. Enteric-coated aspirin 81 mg p.o. daily. 5. Plavix 75 mg p.o. daily. 6. Coreg 6.25 mg p.o. b.i.d. 7. Lipitor 40 mg p.o. at bedtime. 8. Isosorbide mononitrate 60 mg p.o. daily. 9. Nitroglycerin 0.4 mg sublingually every 5 minutes p.r.n. chest pain. ALLERGIES: No known drug allergies. FAMILY HISTORY: Father after apparent accident. SOCIAL HISTORY: Patient is , resides near [place], [place]. 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 Functional of all activities of daily living. REVIEW OF SYSTEMS: The following complete review of systems was otherwise negative, except as stated per HPI: Constitutional: Weight loss or gain, ability to conduct usual activities. Skin: Rash, i tching. Eyes: Double vision, pain. ENT/Mouth: Nose bleeding, neck stiffness, pain, tenderness. C ardiovascular: Palpitations, dyspnea on exertion, orthopnea. Respiratory: Shortness of breath, whe ezing, cough, hemoptysis, fever, or night sweats. Gastrointestinal: Poor appetite, abdominal pain, heartburn, nausea, vomiting, constipation, or diarrhea. Genitourinary: Urgency, frequency, dysuria, nocturia. Musculoskeletal: Pain, swelling. Neurologic/Psychiatric: Anxiety, depression. Allergy /Immunologic: Skin rash, bleeding tendency. PHYSICAL EXAMINATION: VITAL SIGNS: On admission, blood pressure 143/65, pulse 67, respiratory rate 20, temperature 97.8 de grees Fahrenheit, O2 saturation 96% on room air. GENERAL APPEARANCE: This is an 87-year-old male, alert and oriented x3, pleasant, conversa nt, in no acute distress. HEENT: Pupils are equal, round, and reactive to light and accommodation. Extraocular muscles are in tact. No scleral icterus, no conjunctival injection. Nares patent. OP is clear. Teeth in fair rep air. NECK: Supple, no cervical adenopathy, no thyromegaly, no carotid bruits, no JVD appreciated. Cervic al spine with full active and passive range of motion. No meningeal signs appreciated. CHEST: Lungs are clear to auscultation bilaterally. CARDIOVASCULAR: S1, S2, with 1/6 systolic ejection murmur in the left upper sternal border. ABDOMEN: Rounded, soft, nontender, nondistended. Bowel sounds are positive in all four quadrants. There is no hepatosplenomegaly, no abdominal bruits, no rebound or guarding appreciated. EXTREMITIES: Warm and dry with fair turgor. No clubbing, cyanosis, or asymmetric edema appreciated. Pulses palpable distally at the dorsalis pedis, posterior tibial, and popliteal arteries bilaterall y. Capillary refill less than 2 seconds. NEUROLOGIC: Cranial nerves II through XII are grossly intact. No focal or lateralizing signs apprec iated. PERTINENT LABORATORY AND X-RAY FINDINGS: Basic metabolic profile within normal limits. LFTs within normal limits. BNP 188, troponin I negative x2. CBC showed a white blood cell count of 10.2, hemogl obin 14, hematocrit 43, platelet count 142 with 79% neutrophils. Portable chest x-ray dated on 01/04 showed hyperinflation without acute process. CT of the brain without contrast dated on 018 showed no acute intracranial process. EKG dated 01/04/2018 by my interpretation shows sinus colby ycardia with heart rates in the 50s. Attenuated R waves noted in the precordial leads. Normal axis. No acute ST-T wave changes appreciated. ASSESSMENT AND PLAN: 1. Syncope. The patient was placed in observation status. Exact etiology unclear. We will continu e telemetry monitoring to assess for acute arrhythmia or sinus pause. Check 2D transthoracic echocar diogram for structural abnormality and ejection fraction. Orthostatic vital signs. Complete cardiac biomarkers for enzymatic rule out for acute coronary syndrome. 2. Coronary artery disease. Chronic and stable. Resume home regimen to include aspirin and Plavix. Continue Lipitor 40 mg daily. 3. Hypertension. Resume home antihypertensive regimen and monitor clinical response. 4. Gastroesophageal reflux disease. Continue Protonix 40 mg p.o. daily. 5. Prophylaxis. Sequential compression devices while in bed. Protonix 40 mg p.o. daily. 6. Code status: FULL. Surrogate medical decision maker is patient's spouse.
[2018-01-05] MEDS ORDERED: Non-Formulary Item 1 EACH (Ranolazine [Ranexa] 1,000 MG) PO SCH (09:00)
[2018-01-05] MEDS ORDERED: Amlodipine 10 MG TAB PO SCH (09:00)
[2018-01-05] MEDS ORDERED: Clopidogrel Bisulfate 75 MG TAB PO SCH (09:00)
[2018-01-05] MEDS: Famotidine 20 MG TAB PO SCH (09:10)
[2018-01-05] MEDS: Carvedilol 6.25 MG TAB PO SCH (09:11)
[2018-01-05 11:52] VITALS: BP 147/67; TEMP 98.4
--- NOTE | 2018-01-05 21:34 | DIS ---
DATE OF ADMISSION: 01/04/2018 DATE OF DISCHARGE: 01/05/2018 DISCHARGE DIAGNOSES: 1. Syncopal episode, likely iatrogenic due to ywmo-zjq-auxbnhg cold medications. 2. Coronary artery disease, chronic and stable. 3. Hypertension, stable. 4. Gastroesophageal reflux, stable. CONSULTATIONS: None. PERTINENT LABORATORY AND X-RAY FINDINGS: Complete metabolic profile within normal limits. BNP 188, troponin I negative x3. CBC showed a white blood cell count of 10.2, hemoglobin 14, hematocrit 43, p latelet count 142 with 80% neutrophils. Portable chest x-ray dated 01/04/2018 showed no acute cardio pulmonary process. Mild hyperinflation in bilateral lung clifford. CT of the brain without contrast d ated 01/04/2018 showed no acute intracranial process. HOSPITAL COURSE: The patient was observed on the telemetry unit after initially presenting status po st brief syncopal episode. The patient underwent general evaluation including CT imaging of the brai n showing no acute intracranial process. Telemetry monitoring showed a sinus mechanism without acute arrhythmia or dysrhythmia. Serial cardiac biomarkers were negative x3 and patient remained clinical ly stable throughout the hospital course. A 2D transthoracic echocardiogram was performed with final results pending at the time of this dictation. The patient overall remained clinically stable, tole rating regular oral intake, voiding appropriately with stable vital signs. I have discussed followup instructions with the patient who verbalized understanding and agreement. The patient overall clini edelmira stable and ready for discharge on 01/05/2018. DISCHARGE MEDICATIONS: 1. Amlodipine 5 mg p.o. daily. 2. Protonix 40 mg p.o. daily. 3. Ranexa 1000 mg p.o. daily. 4. Enteric coated aspirin 81 mg p.o. daily. 5. Lipitor 40 mg p.o. at bedtime. 6. Coreg 6.25 mg p.o. b.i.d. 7. Plavix 75 mg p.o. daily. 8. Imdur 60 mg p.o. daily. 9. Nitroglycerin 0.4 mg sublingually every 5 minutes p.r.n. chest pain. FOLLOWUP: The patient will follow up with his primary care provider Gauri Rahman within 7 days of grace watson. The patient will follow up with Dr. Elia Capone with [facility] and to call his office for appointment time and date. CONDITION ON DISCHARGE: Stable. ACTIVITY: Ad felicity. DIET: Heart healthy. CODE STATUS: FULL. DISPOSITION: Home on 01/05/2018.
== END 2018-01-05 14:45 | disposition home or self-care (01) ==
LOC: ERS 10:38 → 2SW 15:07
PROVIDERS: ADMIT Family Medicine; ATTEND Family Medicine
DX: R55 Syncope and collapse (principal); I25.10 Atherosclerotic heart disease of native coronary artery without angina pectoris; I25.2 Old myocardial infarction; K21.9 Gastro-esophageal reflux disease without esophagitis; I10 Essential (primary) hypertension; Z85.46 Personal history of malignant neoplasm of prostate; Z79.899 Other long term (current) drug therapy; Z79.02 Long term (current) use of antithrombotics/antiplatelets
CPT/HCPCS: 70450; 71045; 80053; 82553; 83880; 84484 ×2; 85025; 93005; 93306; 99285; G0378 ×2; 36415

== ENCOUNTER → 2018-02-03 | Day surgery (SDC) | payer MEDICARE, OTHER ==
[2018-02-02 17:37] VITALS: BMI 25.1
[~2018-02-03] MED LIST changes: -ISOVUE-370 76%-LOCM 1 ML ONE; +Lidocaine 1% w/Epinephrine 1:100K 30 ML VIAL ONE
== END ==
LOC: CCL 08:54
PROVIDERS: ATTEND Internal Medicine Cardiovascular Disease
PROC: 0JH632Z Insertion of Monitoring Device into Chest Subcutaneous Tissue and Fascia, Percutaneous Approach (ICD-10-PCS; principal; 2018-02-03)
DX: R55 Syncope and collapse (principal); I10 Essential (primary) hypertension; I25.119 Atherosclerotic heart disease of native coronary artery with unspecified angina pectoris; E78.2 Mixed hyperlipidemia; I35.1 Nonrheumatic aortic (valve) insufficiency; Z79.82 Long term (current) use of aspirin; Z79.899 Other long term (current) drug therapy
CPT/HCPCS: 33282; C1764; J2001

== ENCOUNTER 2018-11-05 08:45 | Outpatient (CLI) | payer MEDICARE, OTHER ==
--- NOTE | 2018-11-05 10:28 | CT ---
EXAM: CT Abdomen Pelvis W WO con PROVIDED CLINICAL HISTORY: Microhematuria COMPARISON: 11/11/2016 FINDINGS: Visualized lung bases are free of significant opacity. Stable bilateral nephrolithiasis, largest at the inferior pole the right kidney measuring about 5 to 6 mm. No evidence for renal mass. The delayed images demonstrate no evidence for filling defect involving the opacified renal collecting systems, ureters or urinary bladder. Postoperative changes o f prior prostatectomy are seen. The liver, spleen, pancreas and adrenal glands demonstrate an unremarkable CT appearance. There is no bowel dilatation, inflammatory fat stranding, free fluid or lymph node enlargement appare nt. There is a stable small bowel containing right inguinal hernia. The osseous structures demonstrate no concerning lytic or blastic lesions. IMPRESSION: Bilateral nonobstructing nephrolithiasis.
[2018-11-05] MEDS ORDERED: ISOVUE-370 76%-LOCM 1 ML ONE (11:59)
== END 2018-11-05 08:46 | disposition home or self-care (01) ==
LOC: BICCT 08:45
PROVIDERS: ATTEND Urology
DX: R31.29 Other microscopic hematuria (principal); N20.0 Calculus of kidney
CPT/HCPCS: 36415; 74178; 81001; 84153; Q9966

== ENCOUNTER 2019-03-21 14:01 | Outpatient (CLI) | payer MEDICARE, OTHER ==
--- NOTE | 2019-03-21 14:49 | RAD ---
Exam: Chest one view HISTORY:MRI clearance. Comparison: 01/04/2018 FINDINGS: Cardiac silhouette: Normal Aorta: Unremarkable Pulmonary vessels: Normal Costophrenic angles: Clear LUNGS: No masses or consolidation. Pneumothorax: None Osseous abnormalities: Evidence of previous right rotator cuff repair. Loop recorder is noted. IMPRESSION: No acute cardiopulmonary process.
--- NOTE | 2019-03-21 15:34 | MRI ---
MRI Lumbar Spine Noncontrast: HISTORY: Lumbar radicular pain. Patient complains of low back pain for one month after lifting a heavy object. COMPARISON: None FINDINGS: A few increased circumscribed T2-weighted signal intensity cystic structures are seen within the midp ortion left kidney largest measuring 1.3 cm likely attributable to small parapelvic renal cysts. A tiny subcentimeter increased T2-weighted signal intensity focus in midportion right kidney too small to characterize. Conus medullaris is normal in morphology and terminates at the L1-2 level. A Schmorl's node is seen in the superior endplate of L3 vertebral body. There is generalized heteroge neity of the bone marrow with scattered degenerative changes seen throughout the lumbar spine. There are prominent anterior osteophytes seen at multiple levels. L1-2: There is no disc bulge or disc herniation. Central spinal canal and neural foramina are patent. Mild facet degenerative changes are seen. L2-3: There is a mild broad-based disc osteophyte complex and facet hypertrophic changes. Findings re sult in mild generalized narrowing of the central spinal canal with mild bilateral neural foraminal narrowing. L3-4: Mild endplate degenerative changes are present at this level, there is loss of intervertebral d isc height. There is broad-based disc osteophyte complex present with facet hypertrophic changes and ligamentous thickening. Mild to moderate central canal and bilateral neural foraminal narrowing i s present. L4-5: There is a broad-based disc osteophyte complex. Facet hypertrophic changes are seen at this lev el with mild ligamentous thickening. Mild narrowing of the central spinal canal and mild bilateral neural foraminal narrowing greater on the right. L5-S1: No central disc bulge or disc herniation is present at this level. Mild facet degenerative greg nges are identified. Central spinal canal and neural foramina are patent. IMPRESSION: 1. Multilevel degenerative changes of the lumbar spine greatest at the L3-4 level. 2. Probable small left renal parapelvic cysts.
== END 2019-03-21 14:02 | disposition home or self-care (01) ==
LOC: BICMRI 14:01
PROVIDERS: ATTEND Family Medicine
DX: M47.26 Other spondylosis with radiculopathy, lumbar region (principal)
CPT/HCPCS: 71045; 72148

== ENCOUNTER 2019-12-04 17:41 | Emergency (ER) | payer MEDICARE, OTHER ==
[2019-12-04] MEDS ORDERED: HYDROcodone/Acetaminophen 10/325 mg Tablet ONE (18:34)
[2019-12-04] MEDS ORDERED: Cyclobenzaprine 10 MG TAB ONE (18:34)
--- NOTE | 2019-12-04 19:14 | RAD ---
Left shoulder 3 views: 12/04/2019 COMPARISON: None HISTORY: Injury, trauma, pain FINDINGS: Prominent degenerative changes of the left acromioclavicular joint noted with interspace na rrowing as well as superior and inferior osteophyte formation. No widening of the acromioclavicular or the coracoclavicular interspace. No displaced fracture or dislocation seen. IMPRESSION: No acute osseous abnormality.
--- NOTE | 2019-12-04 19:38 | CT ---
Head CT without contrast 12/04/2019: COMPARISON: 01/04/2018 HISTORY: Trauma, pain TECHNIQUE: Axial CT imaging at 5 mm intervals from vertex through skull base without contrast FINDINGS: The visualized paranasal sinuses and mastoid air cells are well-aerated. There is no displa sajan calvarial fracture. No intracranial hemorrhage, midline shift, mass effect, or ventricular enlargement. There is mild contour irregularity involving the posterior aspect of the right globe wit h associated peripheral calcifications, unchanged when compared to the 2018 exam. IMPRESSION: No acute findings.
--- NOTE | 2019-12-04 20:36 | CT ---
CERVICAL SPINE CT WITHOUT CONTRAST: History: Fall. Trauma. Pain. FINDINGS: There is no craniocervical disassociation. Appropriate alignment of the lateral masses of C1 and C2. Intact odontoid process. Multilevel facet arthropathy. No prevertebral soft tissue swelling. No acute abnormalities in the upper mediastinal and lung apices . There is fusion of the C5-6 and C6-7 disc space. There is multilevel degenerative change with signifi cant central canal stenosis and neural foraminal narrowing. Technique does limit evaluation. Extensiv e disc osteophyte complexes are noted. No facet arthropathy is identified. No evidence of an acute cervical spine fracture. Demineralization does limit evaluation. IMPRESSION: 1. No fracture. 2. 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 POS: [facility]
== END 2019-12-04 20:45 | disposition home or self-care (01) ==
LOC: ERS 17:41
DX: S00.81XA Abrasion of other part of head, initial encounter (principal); M62.838 Other muscle spasm; I25.2 Old myocardial infarction; I10 Essential (primary) hypertension; Z79.899 Other long term (current) drug therapy; W01.0XXA Fall on same level from slipping, tripping and stumbling without subsequent striking against object, initial encounter
CPT/HCPCS: 70450; 72125

== ENCOUNTER 2020-03-20 14:08 | Outpatient (CLI) | payer MEDICARE, OTHER ==
--- NOTE | 2020-03-20 14:38 | RAD ---
LEFT HAND 3 VIEWS: HISTORY: Hand pain. No history of trauma given. FINDINGS: Marked arthritic changes of the hand and wrist are seen. Prominent osteophytic changes of the interp halangeal joints. Also degenerative changes of the metacarpophalangeal joints, 1st carpometacarpal j oint space, triscaphe joint, and radiocarpal joints. There is also chondrocalcinosis of the triangul ar fibrocartilage. 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 POS: [facility]
== END 2020-03-20 14:09 | disposition home or self-care (01) ==
LOC: RAD-FRANK 14:08
PROVIDERS: ATTEND Nurse Practitioner Family
DX: M25.532 Pain in left wrist (principal); M19.032 Primary osteoarthritis, left wrist; M19.042 Primary osteoarthritis, left hand

== ENCOUNTER 2021-08-22 22:47 | Inpatient (IN) | payer MEDICARE, OTHER ==
[2021-08-22 23:53] LABS: #Lymphocytes 1.1 thou/uL (1.20-3.40); #Monocytes 1.2 thou/uL (0.11-0.59); #Neutrophils 8.6 thou/uL (1.40-6.50); %Basophils 0.3 % (0.0-1.0); %Eosinophils 0.3 % (0.0-10.0); %Monocytes 11.2 % (0.0-10.0); %Neutrophils 78.2 % (42.0-75.0); Hemoglobin 14.9 g/dL (14.0-18.0); Mean Corpuscular HGB CONC 33.6 g/dL (32.0-36.0); Mean Corpuscular Hemoglobin 32.7 pg (27.0-31.0); Mean Corpuscular Volume 97.3 fL (78.0-98.0); Mean Platelet Volume 8.3 fL (7.4-10.4); Platelet Count 163 thou/uL (130-400); RBC Distribution Width 12.3 % (11.5-14.5); Red Blood Cell (RBC) Count 4.57 mill/uL (4.70-6.10); White Blood Cell (WBC) Count 10.9 thou/uL (4.8-10.8)
[2021-08-23] MEDS ORDERED: Ketorolac Tromethamine 30 MG/ML VIAL ONE (00:44)
[2021-08-23] MEDS ORDERED: Ondansetron PF 4 MG/2 ML Vial ONE (00:44)
[2021-08-23] MEDS ORDERED: Ondansetron ODT 4 MG TAB SL PRN (02:15)
[2021-08-23] MEDS ORDERED: Ondansetron PF 4 MG/2 ML Vial IVP PRN (02:15)
[2021-08-23] MEDS ORDERED: Acetaminophen 325 MG TAB PO PRN (02:15)
[2021-08-23 02:37] VITALS: BMI 25.4
[2021-08-23 04:06] LABS: ALT (SGPT) 11 U/L (8-55); AST (SGOT) 15 U/L (5-34); Albumin 3.3 g/dL (3.4-4.8); Alkaline Phosphatase 112 U/L (40-110); Anion Gap 13 mmol/L (10-20); BUN (Urea Nitrogen) 16 mg/dL (8.4-25.7); Bilirubin, Total 1.6 mg/dL (0.2-1.2); Calc. Creatinine Clearance 62 mL/min (70-130); Calcium 8.7 mg/dL (7.8-10.44); Carbon Dioxide 24 mmol/L (23-31); Chloride 102 mmol/L (98-107); Estimated GFR 78; Globulin 2.4 g/dL (2.4-3.5); Glucose 140 mg/dL (83-110); Potassium 4.4 mmol/L (3.5-5.1); Protein, Total 5.7 g/dL (5.8-8.1); Sodium 135 mmol/L (136-145)
[2021-08-23] MEDS ORDERED: Benzonatate 100 MG CAP PO PRN (04:52)
[2021-08-23] MEDS ORDERED: Acetaminophen 650 MG Suppository PR PRN ×2 (04:52)
[2021-08-23] MEDS ORDERED: Albuterol 200 PUFF (6.7GM INHALER) INH PRN (04:52)
[2021-08-23] MEDS: Cholecalciferol (Vitamin D3) 400 UNITS TAB PO SCH (09:01)
[2021-08-23] MEDS: Ascorbic Acid 500 mg Chewable Tablet PO SCH (09:01)
[2021-08-23] MEDS: Zinc Sulfate 220 MG CAP PO SCH (09:02)
[2021-08-24 07:12] LABS: #Eosinphils 0.1 thou/uL (0.0-0.7); #Lymphocytes 1.2 thou/uL (1.20-3.40); #Monocytes 1.2 thou/uL (0.11-0.59); #Neutrophils 5.9 thou/uL (1.40-6.50); %Basophils 0.3 % (0.0-1.0); %Eosinophils 0.7 % (0.0-10.0); %Lymphocytes 13.7 % (21.0-51.0); %Monocytes 14.8 % (0.0-10.0); %Neutrophils 70.5 % (42.0-75.0); Hemoglobin 14.5 g/dL (14.0-18.0); Mean Corpuscular HGB CONC 32.4 g/dL (32.0-36.0); Mean Corpuscular Volume 98.8 fL (78.0-98.0); Mean Platelet Volume 8.6 fL (7.4-10.4); Platelet Count 170 thou/uL (130-400); RBC Distribution Width 12.2 % (11.5-14.5); Red Blood Cell (RBC) Count 4.52 mill/uL (4.70-6.10); White Blood Cell (WBC) Count 8.4 thou/uL (4.8-10.8)
[2021-08-24 07:30] LABS: Anion Gap 13 mmol/L (10-20); BUN (Urea Nitrogen) 12 mg/dL (8.4-25.7); Calc. Creatinine Clearance 79 mL/min (70-130); Calcium 8.7 mg/dL (7.8-10.44); Carbon Dioxide 24 mmol/L (23-31); Chloride 103 mmol/L (98-107); Estimated GFR 87; Glucose 96 mg/dL (83-110); Sodium 136 mmol/L (136-145)
[2021-08-24] MEDS ORDERED: Lidocaine 1% (PF) 30 ML VIAL SC SCH (08:00)
[2021-08-24] MEDS: Zinc Sulfate 220 MG CAP PO SCH (08:07)
[2021-08-24] MEDS: Ascorbic Acid 500 mg Chewable Tablet PO SCH (08:07)
[2021-08-24] MEDS: Cholecalciferol (Vitamin D3) 400 UNITS TAB PO SCH (08:07)
[2021-08-24 13:57] LABS: Synovial Fluid, Protein 3.3 g/dL (Not Available); Synovial Fluid, Uric Acid 3.7 mg/dL (Not Available)
[2021-08-24 14:06] LABS: RBC Count-Automated (BF) 838 /cu.mm; WBC/Nucleated-Auto (BF) 13815 /cu.mm
[2021-08-24 14:09] LABS: BF Color Yellow; Body Fluid Source Synovial Fluid; Clarity Cloudy/Turbid (Clear); Tube # EDTA
[2021-08-24 14:30] LABS: BF Segmented Neutrophils 80 %; Cell Count Non Hematic 19 %; Lymphocytes 1 %
[2021-08-24] MEDS: Acetaminophen 325 MG TAB PO PRN (16:49)
[2021-08-24] MEDS: Acetaminophen 325 MG TAB PO SCH (21:00)
[2021-08-24] MEDS: Atorvastatin Calcium 40 MG TAB PO SCH (21:00)
[2021-08-25 06:42] LABS: #Eosinphils 0.1 thou/uL (0.0-0.7); #Lymphocytes 1.1 thou/uL (1.20-3.40); #Monocytes 1.3 thou/uL (0.11-0.59); #Neutrophils 7.5 thou/uL (1.40-6.50); %Basophils 0.1 % (0.0-1.0); %Eosinophils 0.6 % (0.0-10.0); %Lymphocytes 10.9 % (21.0-51.0); %Monocytes 13.2 % (0.0-10.0); %Neutrophils 75.2 % (42.0-75.0); Hemoglobin 14.9 g/dL (14.0-18.0); Mean Corpuscular HGB CONC 31.9 g/dL (32.0-36.0); Mean Corpuscular Hemoglobin 31.8 pg (27.0-31.0); Mean Corpuscular Volume 99.5 fL (78.0-98.0); Mean Platelet Volume 8.6 fL (7.4-10.4); Platelet Count 204 thou/uL (130-400); RBC Distribution Width 12.3 % (11.5-14.5); Red Blood Cell (RBC) Count 4.68 mill/uL (4.70-6.10)
[2021-08-25 07:10] LABS: ALT (SGPT) 12 U/L (8-55); AST (SGOT) 19 U/L (5-34); Albumin 3.2 g/dL (3.4-4.8); Alkaline Phosphatase 117 U/L (40-110); Anion Gap 12 mmol/L (10-20); BUN (Urea Nitrogen) 14 mg/dL (8.4-25.7); Bilirubin, Total 1.8 mg/dL (0.2-1.2); Calc. Creatinine Clearance 73 mL/min (70-130); Calcium 8.8 mg/dL (7.8-10.44); Carbon Dioxide 28 mmol/L (23-31); Chloride 102 mmol/L (98-107); Estimated GFR 85; Globulin 2.9 g/dL (2.4-3.5); Glucose 212 mg/dL (83-110); Magnesium 2.1 mg/dL (1.6-2.6); Potassium 4.4 mmol/L (3.5-5.1); Protein, Total 6.1 g/dL (5.8-8.1); Sodium 138 mmol/L (136-145)
[2021-08-25] MEDS: Acetaminophen 325 MG TAB PO SCH (08:33)
[2021-08-25] MEDS: Aspirin Chewable 81 MG TAB PO SCH (08:34)
[2021-08-25] MEDS: Ascorbic Acid 500 mg Chewable Tablet PO SCH (08:34)
[2021-08-25] MEDS: Zinc Sulfate 220 MG CAP PO SCH (08:35)
[2021-08-25] MEDS: Apixaban 5 MG TAB PO SCH ×2 (08:35→20:55)
[2021-08-25] MEDS: Cholecalciferol (Vitamin D3) 400 UNITS TAB PO SCH (08:35)
[2021-08-25] MEDS ORDERED: Colchicine 0.6 MG TAB PO SCH (13:00)
[2021-08-25] MEDS: Colchicine 0.6 MG TAB PO SCH (20:55)
[2021-08-25] MEDS: Acetaminophen 325 MG TAB PO PRN (20:55)
[2021-08-25] MEDS: Atorvastatin Calcium 40 MG TAB PO SCH (20:56)
[2021-08-26 06:23] LABS: #Basophils 0.1 thou/uL (0.0-0.2); #Eosinphils 0.1 thou/uL (0.0-0.7); #Neutrophils 6.4 thou/uL (1.40-6.50); %Basophils 0.6 % (0.0-1.0); %Eosinophils 1.6 % (0.0-10.0); %Monocytes 12.1 % (0.0-10.0); %Neutrophils 74.7 % (42.0-75.0); Hemoglobin 13.3 g/dL (14.0-18.0); Mean Corpuscular HGB CONC 32.7 g/dL (32.0-36.0); Mean Corpuscular Hemoglobin 32.2 pg (27.0-31.0); Mean Corpuscular Volume 98.6 fL (78.0-98.0); Platelet Count 198 thou/uL (130-400); RBC Distribution Width 12.1 % (11.5-14.5); Red Blood Cell (RBC) Count 4.14 mill/uL (4.70-6.10); White Blood Cell (WBC) Count 8.6 thou/uL (4.8-10.8)
[2021-08-26 06:43] LABS: ALT (SGPT) 12 U/L (8-55); AST (SGOT) 20 U/L (5-34); Alkaline Phosphatase 107 U/L (40-110); Anion Gap 13 mmol/L (10-20); BUN (Urea Nitrogen) 17 mg/dL (8.4-25.7); Calc. Creatinine Clearance 85 mL/min (70-130); Calcium 8.8 mg/dL (7.8-10.44); Carbon Dioxide 25 mmol/L (23-31); Chloride 105 mmol/L (98-107); Estimated GFR 89; Globulin 2.7 g/dL (2.4-3.5); Glucose 115 mg/dL (83-110); Potassium 3.8 mmol/L (3.5-5.1); Protein, Total 5.7 g/dL (5.8-8.1); Sodium 139 mmol/L (136-145)
[2021-08-26 09:55] VITALS: BP 175/72; TEMP 98.1
[2021-08-26] MEDS: Ascorbic Acid 500 mg Chewable Tablet PO SCH (10:06)
[2021-08-26] MEDS: Zinc Sulfate 220 MG CAP PO SCH (10:07)
[2021-08-26] MEDS: Aspirin Chewable 81 MG TAB PO SCH (10:07)
[2021-08-26] MEDS: Cholecalciferol (Vitamin D3) 400 UNITS TAB PO SCH (10:07)
[2021-08-26] MEDS: Apixaban 5 MG TAB PO SCH (10:07)
[2021-08-26] MEDS: Colchicine 0.6 MG TAB PO SCH (10:08)
[2021-08-26] MEDS ORDERED: Ondansetron ODT 4 MG TAB PO PRN (11:37)
[2021-08-27] MEDS ORDERED: Amlodipine 5 MG TAB PO SCH (09:00)
[2021-08-27] MEDS ORDERED: Colchicine 0.3 MG TAB PO SCH (09:00)
== END 2021-08-26 19:05 | disposition home health service (06) | DRG 564 ==
LOC: ERS 22:47 → IMCU/EMU 08-23 01:08 → OBSVTOIN 08-23 04:20 → T4-A 08-23 19:31
PROVIDERS: ADMIT Internal Medicine; ATTEND Internal Medicine
PROC: 8E0ZXY6 Isolation (ICD-10-PCS; 2021-08-23)
PROC: 0S9C3ZZ Drainage of Right Knee Joint, Percutaneous Approach (ICD-10-PCS; principal; 2021-08-24)
DX: M25.461 Effusion, right knee (principal); U07.1 COVID-19; E87.1 Hypo-osmolality and hyponatremia; I25.10 Atherosclerotic heart disease of native coronary artery without angina pectoris; I10 Essential (primary) hypertension; I95.9 Hypotension, unspecified; C61 Malignant neoplasm of prostate; M17.11 Unilateral primary osteoarthritis, right knee; N18.2 Chronic kidney disease, stage 2 (mild); D53.9 Nutritional anemia, unspecified; I25.2 Old myocardial infarction; Z95.5 Presence of coronary angioplasty implant and graft; Z90.49 Acquired absence of other specified parts of digestive tract; Z79.82 Long term (current) use of aspirin; Z79.01 Long term (current) use of anticoagulants; Z79.899 Other long term (current) drug therapy
CPT/HCPCS: 36415; 80048; 80053; 82550; 82945; 83605; 83735; 84157; 84484; 84560; 85025; 85060; 85652; 86140; 87040; 87070; 87205; 89051; 89060; 93005; 96374; 96375; J1885; J2405; U0003; U0005

== ENCOUNTER 2022-10-06 11:18 | Outpatient (CLI) | payer MEDICARE, OTHER | END 2022-10-06 11:19 | disposition home or self-care (01) | LOC: RAD-FRANK 11:18 | PROVIDERS: ATTEND Nurse Practitioner Family | DX: R05.9 Cough, unspecified (principal) | CPT/HCPCS: 71046 ==